=== PATIENT | male | born 1950 | race Caucasian/White ===

== ENCOUNTER 2021-02-18 13:43 | Outpatient (CLI) | payer MEDICARE, BC, SELFPAY ==
--- NOTE | 2021-02-18 10:30 | DI.RAD_ITS ---
Exam(s) XR WRIST RT COMPL NAVICULAR EXAM: XR WRIST RT COMPL NAVICULAR CLINICAL HISTORY: fall, wrist injury and pain, [id number]. TECHNIQUE: 2D digital imaging was performed. COMPARISON: No exams were available for comparison FINDINGS: There is no evidence of acute fracture nor dislocation nor significant ulnar variance. Bone density is age-appropriate. No osseous lesions. No radiopaque foreign body IMPRESSION: No fracture evident. DATA REPOSITORY: RADIATION DOSE DELIVERED:
== END 2021-02-18 14:03 ==
PROVIDERS: Visit Provider Physician Assistant
DX: M25.531 Pain in right wrist (principal); S69.81XA Other specified injuries of right wrist, hand and finger(s), initial encounter; W19.XXXA Unspecified fall, initial encounter
CPT/HCPCS: 73110